=== PATIENT | female | born 1955 | race African-American/Black ===

== ENCOUNTER 2021-04-21 10:10 | Emergency (ER) | payer MEDICARE, MEDICAID ==
[~2021-04-21] VITALS: Ht 162.6 cm; Wt 107.0 kg
[2021-04-21 10:28] VITALS: BP 133/86
[2021-04-21] MEDS ORDERED: IBUPROFEN 600 MG TABLET. PO ONE (11:15)
--- NOTE | 2021-04-21 11:43 | RAD ---
XR CHEST 1V History: Cough, chest congestion for 2 days. Comparison: None. Technique: Portable AP radiograph of the chest. Findings: The lungs are adequately and symmetrically inflated. There is no airspace consolidation, pleural effu wu or pneumothorax. The heart size is normal. There is a rightward convex border of the ascending a ruth. Tortuous descending aorta. Pulmonary vasculature is within normal limits. Osseous structures an d soft tissues are unremarkable. Impression: 1. No airspace consolidation. 2. Rightward convex border of the ascending aorta may represent ascending aortic ectasia. Recommend CT of the chest or cardiac echo for further evaluation. Electronically signed by: Manpreet Keane MD (04/21/2021 11:41 AM) [facility]
--- NOTE | 2021-04-21 12:17 | PHYS DOC ---
Past History Additional Past Medical Histor: Lupus, fatty liver, hiatal hernia (THAI MEEHAN APRN) Past Surgical History: Appendectomy, Hysterectomy, Oophorectomy, Other (THAI MEEHAN APRN) Adult General Chief Complaint Chief Complaint: CONGESTION HPI HPI Patient is a 65-year-old female presents emergency department complaining of facial discomfort with nasal congestion and nonproductive cough, runny nose for the past 2 days. Patient denies reported fever however states she does get hot and cold. Patient denies sore throat, difficulty swallowing, denies shortness of breath or chest pains, denies abdominal pains, nausea, vomiting, diarrhea, denies dizziness, syncopal or near syncopal episodes. Patient denies other physical complaints or physical concerns. Patient reports receiving the COVID- 19 virus vaccination series. (THAI MEEHAN APRN) Review of Systems Review of Systems 14 body systems of review of systems have been reviewed. See HPI for pertinent positives and negative responses, otherwise all other systems are negative, nonpertinent or noncontributory. Constitutional: Negative except as outlined in HPI above. Skin: Negative except as outlined in HPI above. Eyes: Negative except as outlined in HPI above. HENT: Negative except as outlined in HPI above. Respiratory: Negative except as outlined in HPI above. Cardiovascular: Negative except as outlined in HPI above. GI: Negative except as outlined in HPI above. : Negative except as outlined in HPI above. Musculoskeletal: Negative except as outlined in HPI above. Integument: Negative except as outlined in HPI above. Neurologic: Negative except as outlined in HPI above. Endocrine: Negative except as outlined in HPI above. Lymphatic: Negative except as outlined in HPI above. Psychiatric: Negative except as outlined in HPI above. (THAI MEEHAN SECURITY INCIDENT RESPONSE SPECIALIST) Current Medications Current Medications Current Medications Medications (Trade) Dose Ordered Sig/Moris Start Time Stop Time Status Last Admin Dose Admin Ibuprofen (Motrin) 600 mg 1X ONCE 04/21/21 11:15 04/21/21 11:18 DC 04/21/21 11:40 600 MG (THAI MEEHAN SECURITY INCIDENT RESPONSE SPECIALIST) Allergies Allergies Allergies Coded Allergies Type Severity Reaction Last Updated Verified Influenza Virus Vaccines Allergy Unknown 04/21/21 Yes Penicillins Allergy Unknown 04/21/21 Yes Tetanus Vaccines and Toxoid Allergy Unknown 04/21/21 Yes fluoxetine Allergy Unknown 04/21/21 Yes gabapentin Allergy Unknown 04/21/21 Yes lisinopril Allergy Unknown 04/21/21 Yes morphine Allergy Unknown 04/21/21 Yes moxifloxacin Allergy Unknown 04/21/21 Yes pneumococcal vaccine Allergy Unknown 04/21/21 Yes sulfamethoxazole Allergy Unknown 04/21/21 Yes trimethoprim Allergy Unknown 04/21/21 Yes (THAI MEEHAN APRN) Physical Exam Physical Exam Constitutional: Well developed, well nourished, no acute distress, non-toxic appearance. 65-year-old female in no apparent distress. HENT: Normocephalic, atraumatic. Oropharynx moist, pink, no deep tissue infectious process appreciated, no uvular edema or deviation, no laryngeal edema, bilateral tonsils within normal limits, no postnasal drip. Bilateral nasal turbinates boggy, clear drainage bilaterally, pain with palpation over m axillary sinuses, no lymphadenopathy of the head or neck appreciated. Bilateral TMs within normal limits, no drainage from external auditory canals. Eyes: Conjunctiva normal, no discharge. Neck: Normal range of motion, no stridor. Cardiovascular: No cyanosis appreciated, distal cap refill less than 2 seconds. Regular rate and rhythm, heart sounds S1-S2 auscultation. Lungs & Thorax: Patient is in no respiratory distress, no audible adventitious lung sounds appreciated. Lung sounds clear to auscultate all lung jimenez. Abdomen: Nontender, no abnormalities noted. Skin: Warm, dry, no erythema, no rash. Back: No tenderness, no deformities. Extremities: No tenderness, no cyanosis, no clubbing, ROM intact, no edema. Neurologic: Alert and oriented X 3, normal motor function, normal sensory function, no focal deficits noted. Psychologic: Affect normal, judgement normal, mood normal. (THAI MEEHAN APRN) Current Patient Data Vital Signs Vital Signs Date Time Temp Pulse Resp B/P (MAP) Pulse Ox O2 Delivery O2 Flow Rate FiO2 04/21/21 10:28 98.0 78 16 133/86 (102) 97 (THAI MEEHAN APRN) EKG EKG [] (THAI MEEHAN APRN) Radiology/Procedures Radiology/Procedures SEX: F EXAM STATUS: REG ER ORD. PHYSICIAN: THAI MEEHAN APRN REASON: Cough congestion X 2 DAYS, PUI PROCEDURE: CHEST AP ONLY XR CHEST 1V History: Cough, chest congestion for 2 days. Comparison: None. Technique: Portable AP radiograph of the chest. Findings: The lungs are adequately and symmetrically inflated. There is no airspace consolidation, pleural effusion or pneumothorax. The heart size is normal. There is a rightward convex border of the ascending aorta. Tortuous descending aorta. Pulmonary vasculature is within normal limits. Osseous structures and soft tissues are unremarkable. Impression: 1. No airspace consolidation. 2. Rightward convex border of the ascending aorta may represent ascending aortic ectasia. Recommend CT of the chest or cardiac echo for further evalu ation. Electronically signed by: Manpreet Keane MD (04/21/2021 11:41 AM) [facility] STATUS: REG ER ORD. PHYSICIAN: THAI MEEHAN APRN REASON: abnormal chest x-ray of aorta PROCEDURE: CT CHEST WO CONTRAST CT of the chest without contrast: Clinical History: Reason: abnormal chest x-ray of aorta / Spl. Instructions: / History: . Axial helical images of the chest were obtained without contrast. FINDINGS: The ascending thoracic aorta is mildly dilated to 3.9 cm. The lungs and pleural margins are clear. There is no mediastinal or hilar lymphadenopathy. There is coronary artery calcifications. Impression: 1. Mildly dilated ascending thoracic aorta. 2. Coronary artery calcifications. End of impression PQRS Compliance Statement: One or more of the following individualized dose reduction techniques were utilized for this examination: 1. Automated exposure control 2. Adjustment of the mA and/or kV according to patient size 3. Use of iterative reconstruction technique Electronically signed by: Murphy Dugan III, MD (04/21/2021 12:52 PM) [facility] (THAI MEEHAN APRN) Heart Score C/O Chest Pain: No Risk Factors: Risk Factors: DM, Current or recent (<one month) smoker, HTN, HLP, family history of CAD, obesity. Risk Scores: Risk Factors: DM, Current or recent (<one month) smoker, HTN, HLP, family history of CAD, obesity. (THAI MEEHAN APRN) Course & Med Decision Making Course & Med Decision Making Pertinent Labs and Imaging studies reviewed. (See chart for details) 65-year-old female, vital signs reviewed, presents emerged from concerning sinus infection type signs and symptoms for past 2 days. Will order COVID-19 testing, chest x-ray, ibuprofen for facial discomfort. Chest x-ray concerning for ascending aortic abnormality, will order CT chest without contrast related to patient's allergy to IV contrast dye. CT chest showed mildly dilated ascending aorta, discussed findings with ED at tending physician Dr. Childers who recommended patient have follow-up with her marine surveyor when she returns home from vacation. Patient had recent echocardiogram EKG, CT scans, Holter monitor this month with her marine surveyor. Sameer findings with patient, discussed follow-up with her marine surveyor when she gets home from vacation, disc copy of imaging given to patient to bring with her to cardiology appointment, patient will be treated for sinusitis with doxycycline twice daily x14 days, patient reports history of yeast infections after taking doxycycline, will order Diflucan prescription. Discussed return to ER precautions and concerns, follow-up with primary care as well as cardiology when returning home for her medication, patient is amenable to ED discharge planning. Discussed with the patient all findings and diagnostic testing as well as the need to follow-up with their primary care provider for further evaluation and treatment or return to the ED if any new or worsening symptoms. Strict return precautions were also discussed at length, the patient voiced understanding and agreement with the discharge planning. The patient was nontoxic in appearance, in no apparent distress, and hemodynamically stable at the time of disposition. (THAI MEEHAN APRN) Course & Med Decision Making I was the Attending physician on the above date of service of this patient. This patient was evaluated, examined, treated, and dispositioned from the emergency department by the mid-level practitioner. I reviewed abnormal findings and otherwise hemodynamically stable patient with recent outpatient echocardiogram that was unremarkable. I reviewed subsequent CT scan that was again unremarkable. I recommend to ER departure with close PCP and marine surveyor follow-up Electronically signed, Ada Childers DO (ADA CHILDERS DO) [place] Disclaimer Dragon Disclaimer This electronic medical record was generated, in whole or in part, using a voice recognition dictation system. (THAI MEEHAN APRN) Departure Departure: Impression: Primary Impression: Sinusitis Additional Impressions: Abnormal chest x-ray Abnormal CT scan, chest Person under investigation for COVID-19 Disposition: HOME / SELF CARE / HOMELESS Condition: GOOD Referrals: PCP,NO (PCP) Patient Instructions: Sinusitis Additional Instructions: You were seen today in the emergency department for sinus congestion. Because the symptoms are closely related to the COVID-19 virus symptoms, a COVID-19 virus PCR test was done today. These results will be pending for the next 48 to 72 hours, you should be contacted by telephone if testing positive. Because of the relation of this very infectious virus, I have attached COVID-19 virus information to this document for your review. As we discussed a chest x-ray was performed to rule out any infectious pneumonia, there were no signs of pneumonia however there was an abnormality of your ascending aorta that required further investigation by CT scan. The CT scan shows a mildly dilated a sending aorta, this may be known to your marine surveyor as you have had a recent full cardiology work-up to include imaging and echocardiograms, however please let your marine surveyor know of these findings here today when you return home from vacation. A disc copy of the CT scan has been given to you, please give this to your marine surveyor for review. Please return to the emergency department for worsening symptoms or other concerns. As we discussed, I am treating your sinus infection with an antibiotic, I am also prescribing you Diflucan for your complaint of yeast infections after taking antibiotics. Thank you for visiting our Emergency Department. It was a pleasure taking care of you today in the emergency department and we appreciate you trusting us with your care. If any additional problems come up don't hesitate to return to visit us. Please follow up with your primary care provider so they can plan additional care if needed and know about the problem that you had. If symptoms worsen come back to the Emergency Department. Any concerning symptoms that start such as chest pain, shortness of air, weakness or numbness on one side of the body, running high fevers or any other concerning symptoms return to the ER. EMERGENCY DEPARTMENT GENERAL DISCHARGE INSTRUCTIONS Thank you for coming to [facility] (ED) today and trusting us with you care. We trust that you had a positivie experience in our Emergency Department. If you wish to speak to the department management, you may call the director at [phone]. YOUR FOLLOW UP INSTRUCTIONS ARE FOLLOWS: 1. Do you have a private Doctor? If you do not have a private doctor, please ask for a resource list of physicians or clinics that may be able to assist you with follow up care. 2. The Emergency Physician has interpreted your x-rays. The X-Ray specialist will also review them. If there is a change in the findings, you will be notified in 48 hours when at all possible. 3. A lab test or culture has been done, your results will be reviewed and you will be notified if you need a change in treatment. ADDITIONAL INSTRUCTIONS AND INFORMATION: 1. Your care today has been supervised by a physician who is specially trained in emergency care. Many problems require more than one evaluation for a complete diagnosis and treatment. We recommend that you schedule your follow up appointment as recommended to ensure complete treatment of you illness or injury. If you are unable to obtain follow up care and continue to have a problem, or if your condition worsens, we recommend that you return to the ED. 2. We are not able to safely determine your condition over the phone nor are we able to give sound medical advice over the phone. For these safety reasons, if you call for medical advice we will ask you to come to the ED for further evaluation. 3. If you have any questions regarding these discharge instructions please call the ED at [phone]. SAFETY INFORMATION: In the interest of safety, wellness, and injury prevention; we encourage you to wear your sealbelt, if you smoke; quite smoking, and we encourage family to use a protective helmet for bicycling and other sporting events that present an increased risk for head injury. IF YOUR SYMPTOMS WORSEN OR NEW SYMPTOMS DEVELOP, OR YOU HAVE CONCERNS ABOUT YOUR CONDITION; OR IF YOUR CONDITION WORSENS WHILE YOU ARE WAITING FOR YOUR FOLLOW UP APPOINTMENT; EITHER CONTACT YOUR PRIMARY CARE DOCTOR, THE PHYSICIAN WHOSE NAME AND NUMBER YOU WERE GIVEN, OR RETURN TO THE ED IMMEDIATELY. You have been tested for or diagnosed with COVID-19. It is an infection caused by a new type of coronavirus. COVID-19 will cause cold-like or mild flu symptoms in most. It can cause more severe symptoms like problems breathing in some. There is no treatment for COVID-19. The body will clear the infection over time. Self-care will help to ease discomfort. Steps to Take: Self-Care Rest as needed. Healthy habits may help you feel better. Steps include: Choose healthy foods including fruits and vegetables. Drink water throughout the day. Get plenty of sleep each night. If you smoke, try to quit. It may ease breathing. Avoid alcohol. Keep Others Healthy The virus can spread to others. Droplets are released every time you sneeze or cough. The droplets can get into the mouth, nose, or eyes of people near you and lead to infection. To lower the chances of spreading COVID-19 to others: Stay at home until your doctor has said it is safe to leave. If you tested positive this will mean staying isolated until both of the following are true: At least 7 days have passed since the start of illness. You are free of fever for at least 72 hours without the use of medicine. During this time: - Avoid public areas, events, or transportation. Do not return to work or [facility] until your doctor has said it is safe to do so. - Call ahead if you need to go to a medical center. Let them know you may have COVID-19. It will help them guide you where to go. They may also ask you to wear a facemask when you come to the office. - If you call for emergency medical services, let them know you may have COVID- 19. While at home: - Try to avoid close contact with others. Stay about 6 feet away. - If possible, spend most of your time in a separate room from others. - Use a face mask if you will be in close contact with others such as sharing a room or vehicle. - Have someone wipe down common surfaces in the home. Use household lime filter operator every day on areas like doorknobs, counters, or sinks. - Cough or sneeze into a tissue. Throw the tissue away right after use. If a tissue is not available, cough or sneeze into your elbow. - Wash your hands often. Wash them after sneezing or coughing. Use soap and water and wash for at least 20 seconds. Alcohol based hand lamp cleaner street light can be used if soap and water is not available. - Do not prepare food for others. Avoid sharing personal items like forks, spoons, or toothbrushes. - Avoid close contact with pets while you are sick. There is no evidence of the virus passing to pets. This is a safety step until more is known about this virus. Isolation can be frustrating. Social interaction can help. Keep in touch with friends and family through phone and tech options. You can still interact with others in your home, just keep a safe distance of about 6 feet. Follow-up: Your doctors office will check in with you to see if there are any changes in your health. You may be asked to keep track of symptoms to share with them. They will also let you know when you are clear to be in public again. Problems to Look Out For: Contact your doctor if your recovery is not going as you expect. Get emergency care if you have problems such as: - Trouble breathing - Nonstop chest pain or pressure - Changes in awareness, confusion, or problems waking - Lips or face have bluish color - Worsening of symptoms If you think you have an emergency, call for emergency medical services right away. As taken from [employer] [facility] Fluconazole (DIFLUCAN) 150 Mg Tablet 1 TAB PO ONCE for yeast infection, #1 TAB 1 Refill Prov: THAI MEEHAN APRN 04/21/21 Doxycycline Hyclate (DOXYCYCLINE HYCLATE) 100 Mg Capsule 1 CAP PO BID for sinusitis for 14 Days, #28 CAP 0 Refills Prov: THAI MEEHAN APRN 04/21/21 Problem Qualifiers Primary Impression: Sinusitis Sinusitis location: maxillary Chronicity: acute Recurrence: not specified as recurrent Qualified Codes: J01.00 - Acute maxillary sinusitis, unspecified THAI MEEHAN APRN Apr 21, 2021 12:17 ADA CHILDERS DO Apr 24, 2021 06:57
--- NOTE | 2021-04-21 12:54 | RAD ---
CT of the chest without contrast: Clinical History: Reason: abnormal chest x-ray of aorta / Spl. Instructions: / History: . Axial helical images of the chest were obtained without contrast. FINDINGS: The ascending thoracic aorta is mildly dilated to 3.9 cm. The lungs and pleural margins are clear. There is no mediastinal or hilar lymphadenopathy. There is coronary artery calcifications. Impression: 1. Mildly dilated ascending thoracic aorta. 2. Coronary artery calcifications. End of impression PQRS Compliance Statement: One or more of the following individualized dose reduction techniques were utilized for this examinat ion: 1. Automated exposure control 2. Adjustment of the mA and/or kV according to patient size 3. Use of iterative reconstruction technique Electronically signed by: Murphy Dugan III, MD (04/21/2021 12:52 PM) [facility]
[2021-04-21] MEDS ORDERED: DOXY100C3 PO (13:50)
[2021-04-21] MEDS ORDERED: FLUC150T PO (13:50)
== END 2021-04-21 13:55 | disposition home or self-care (01) ==
LOC: ER 10:10
DX: J01.00 Acute maxillary sinusitis, unspecified (principal); R93.1 Abnormal findings on diagnostic imaging of heart and coronary circulation; R94.8 Abnormal results of function studies of other organs and systems; Z20.822 Contact with and (suspected) exposure to COVID-19; Z88.0 Allergy status to penicillin; Z88.7 Allergy status to serum and vaccine; Z88.5 Allergy status to narcotic agent; Z88.2 Allergy status to sulfonamides; Z88.1 Allergy status to other antibiotic agents
CPT/HCPCS: 71045; 71250; 99285; U0003